=== PATIENT | male | born 1980 | race Caucasian/White ===

== ENCOUNTER 2023-10-15 11:28 | Inpatient (IN) | payer OTHER, SELFPAY ==
[~2023-10-15] VITALS: Ht 193 cm; Wt 65.9 kg
[2023-10-15] MEDS ORDERED: AMPHET/DEXTR PO (11:44)
[2023-10-15] MEDS ORDERED: MED REC IN PROGRESS XX SCH (12:00)
[2023-10-15] MEDS ORDERED: HALOPERIDOL 5MG/ML 1ML VIAL IM ONE (13:15)
[2023-10-15] MEDS ORDERED: LORazepam 2 MG/ML 1ML VIAL IM ONE (13:15)
[2023-10-15] MEDS ORDERED: diphenhydrAMINE 50MG/ML VIAL IM ONE (13:15)
[2023-10-15 13:29] LABS: HEMATOCRIT 46.7 % (42.0-52.0); HEMOGLOBIN 15.9 g/dl (13.5-17.5); MEAN CORPUSCULAR HEMOGLOBIN 30.8 pg (27.0-33.0); MEAN CORPUSCULAR VOLUME 90.3 fl (80.0-96.0); PLATELET COUNT, AUTOMATED 296 10^3/uL (150-450); RED BLOOD COUNT 5.17 10^6/uL (4.30-6.10)
[2023-10-15] MEDS ORDERED: MED REC CURRENTLY UNOBTAINABLE XX SCH (13:50)
[2023-10-15 14:01] LABS: ETHYL ALCOHOL (ETHANOL) < 0.003 % (0.000-0.010)
[2023-10-15 14:02] LABS: SALICYLATE LEVEL < 3.0 MG/DL (<30)
[2023-10-15 14:03] LABS: ALBUMIN 4.4 G/DL (3.2-5.2); ALKALINE PHOSPHATASE 69 U/L (46-116); ALT/SGPT 22 U/L (7.0-40); AST/SGOT 19 U/L (<34); BILIRUBIN,DIRECT 0.2 MG/DL (<0.4); BILIRUBIN,TOTAL 0.7 MG/DL (0.3-1.2); BLOOD UREA NITROGEN 12 MG/DL (9-23); CALCIUM LEVEL 9.5 MG/DL (8.5-10.1); CARBON DIOXIDE LEVEL 26 MMOL/L (20-31); CHLORIDE LEVEL 104 MMOL/L (98-107); CREATININE FOR GFR 0.81 MG/DL (0.70-1.30); GLOMERULAR FILTRATION RATE > 60.0 (>60); GLUCOSE, FASTING 119 MG/DL (60-100); POTASSIUM SERUM 4.3 MMOL/L (3.5-5.1); SODIUM LEVEL 138 MMOL/L (136-145); TOTAL PROTEIN 7.3 G/DL (5.7-8.2)
[2023-10-15 14:04] LABS: THYROID STIMULATING HORMONE 1.997 uIU/ML (0.55-4.78)
[2023-10-15 16:54] LABS: BARBITURATES URINE NEGATIVE (NEGATIVE); BENZODIAZEPINES URINE NEGATIVE (NEGATIVE); COCAINE METABOLITE URINE NEGATIVE (NEGATIVE); METHADONE URINE NEGATIVE (NEGATIVE)
[2023-10-15 16:55] LABS: AMPHETAMINES LEVEL URINE POSITIVE (NEGATIVE); CANNABINOIDS URINE POSITIVE (NEGATIVE); OPIATES URINE NEGATIVE (NEGATIVE); PHENCYCLIDINE URINE NEGATIVE (NEGATIVE)
[2023-10-15] MEDS: ADDERALL 5 MG TAB PO SCH (21:00)
[2023-10-16] MEDS: ADDERALL 5 MG TAB PO SCH ×2 (09:06→20:42)
[2023-10-16] MEDS ORDERED: MOM 30ML SUSPENSION UDC PO PRN (13:00)
[2023-10-16] MEDS ORDERED: MAALOX 30 ML SUSP *UDC PO PRN (13:00)
[2023-10-16] MEDS ORDERED: IBUPROFEN 400MG TAB PO PRN (13:00)
[2023-10-16] MEDS ORDERED: diphenhydrAMINE 25MG CAP PO PRN (13:00)
[2023-10-16] MEDS ORDERED: ACETAMINOPHEN TAB 650MG DOSE (2X325MG) PO PRN (13:00)
[2023-10-16] MEDS ORDERED: OLANZapine ORAL DISINTEGRATING TAB 5MG PO PRN (13:00)
[2023-10-16] MEDS ORDERED: HOME MED LIST COMPLETE! XX SCH (13:25)
[2023-10-16] MEDS ORDERED: ADDE20TA PO (13:25)
[2023-10-17 06:10] VITALS: BP 112/73; TEMP 98.4; O2SAT 97
[2023-10-17] MEDS: ADDERALL 5 MG TAB PO SCH ×2 (08:57→09:00)
[2023-10-17] MEDS: HYDROCORTISONE 1% CREAM 30GM TOP SCH (17:03)
[2023-10-17 18:31] VITALS: BP 121/80; TEMP 98.2; O2SAT 97
[2023-10-17] MEDS: traZODone 50 MG TAB PO PRN (20:36)
[2023-10-18 06:02] VITALS: BP 127/59; TEMP 97.7; O2SAT 99
[2023-10-18] MEDS: HYDROCORTISONE 1% CREAM 30GM TOP SCH (08:49)
[2023-10-18] MEDS: ADDERALL 5 MG TAB PO SCH (08:49)
[2023-10-18] MEDS: SERTRALINE HCL 50 MG TAB PO SCH (08:49)
[2023-10-18 16:39] VITALS: BP 143/97; TEMP 97.8; O2SAT 97
[2023-10-18] MEDS: ARIPiprazole 2 MG TAB PO SCH (20:13)
[2023-10-18] MEDS: traZODone 50 MG TAB PO PRN (20:13)
[2023-10-19 05:44] VITALS: BP 121/73; TEMP 97.4; O2SAT 98
[2023-10-19] MEDS: SERTRALINE HCL 50 MG TAB PO SCH (08:18)
[2023-10-19] MEDS: HYDROCORTISONE 1% CREAM 30GM TOP SCH (08:18)
[2023-10-19] MEDS: ADDERALL 5 MG TAB PO SCH (08:18)
[2023-10-19 15:52] VITALS: BP 132/65; TEMP 98.7; O2SAT 99
[2023-10-19] MEDS: traZODone 50 MG TAB PO PRN (20:20)
[2023-10-19] MEDS: ARIPiprazole 2 MG TAB PO SCH (20:20)
[2023-10-19] MEDS ORDERED: ABIL1TAB13 PO (22:15)
[2023-10-19] MEDS ORDERED: HYDR1CR TOP (22:15)
[2023-10-19] MEDS ORDERED: SERT50TA29 PO (22:15)
[2023-10-19] MEDS ORDERED: TRAZ-252 PO (22:15)
[2023-10-20] MEDS: HYDROCORTISONE 1% CREAM 30GM TOP SCH (08:34)
[2023-10-20] MEDS: SERTRALINE HCL 50 MG TAB PO SCH (08:34)
[2023-10-20] MEDS: ADDERALL 5 MG TAB PO SCH (08:34)
== END 2023-10-20 10:10 | disposition home or self-care (01) | DRG 756 ==
LOC: M ED 11:28 → M ED INP 10-16 12:58 → M PSY 10-16 13:48
PROVIDERS: ADMIT Student in an Organized Health Care Education/Training Program; ATTEND Student in an Organized Health Care Education/Training Program
DX: F41.1 Generalized anxiety disorder (principal); F32.A Depression, unspecified; F43.9 Reaction to severe stress, unspecified; F12.90 Cannabis use, unspecified, uncomplicated; F90.9 Attention-deficit hyperactivity disorder, unspecified type; R45.851 Suicidal ideations; Z63.0 Problems in relationship with spouse or partner; Z91.410 Personal history of adult physical and sexual abuse; Z79.899 Other long term (current) drug therapy; Z20.822 Contact with and (suspected) exposure to COVID-19